=== PATIENT | female | born 1990 | race Caucasian/White ===

== ENCOUNTER 2017-01-02 18:38 | Observation (INO) | payer OTHER ==
[~2017-01-02] VITALS: Ht 160 cm; Wt 56.6 kg
[~2017-01-02 18:38] MED LIST: ASACOL HD800 MG PO; DESYREL 150 MG150 MG PO; DILAUDID2 MG PO; PERCOCET 5/31 TABLET PO; PRILOSEC OTC20 MG PO; REMICADE10 MG/ML IV
[2017-01-02 19:22] LABS: HEMATOCRIT 40.5 % (36.0-46.0); MCH 29.4 PG (29.0-34.0); MCHC 33.8 G/DL (30.0-36.0); MCV 86.9 FL (83-99); MEAN PLAT.VOLUME 10.6 uM^3 (9.5-12.4); PLATELET COUNT 254 K/uL (156-360); RBC DIS.WIDTH-CV 13.3 % (11.8-14.6); RBC DIS.WIDTH-SD 41.4 % (39-53); RED BLOOD COUNT 4.66 M/uL (3.80-5.20)
[2017-01-02 19:43] LABS: CHLORIDE 106 mEq/L (99-109); POTASSIUM 3.8 mEq/L (3.7-5.4); SODIUM 141 mEq/L (136-147)
[2017-01-02 19:44] LABS: MAGNESIUM 2.2 mg/dL (1.3-2.7)
[2017-01-02 19:46] LABS: GLUCOSE 96 mg/dL (70-99)
[2017-01-02 19:47] LABS: ANION GAP 10 MEQ/L (2-14)
[2017-01-02 19:49] LABS: GFR ESTIMATE (CALCULATED) > 59 mL/min/
[2017-01-02 19:50] LABS: UREA NITROGEN (BUN) 17 mg/dL (9-23)
[2017-01-02 19:52] LABS: QUANTITATIVE HCG < 4.0 MIU/ML
[2017-01-02 20:07] LABS: AMPHETAMINE NEGATIVE (500 ng/mL); BARBITURATES NEGATIVE (200 ng/mL); BENZODIAZEPINES NEGATIVE (150 ng/mL); COCAINE NEGATIVE (150 ng/mL); INTERNAL CONTROLS VALID? YES; METHADONE NEGATIVE (200 ng/mL); METHAMPHETAMINE NEGATIVE (500 ng/mL); OPIATES (MORPHINE) NEGATIVE (100 ng/mL); OXYCODONE PRESUMPTIVE POSITIVE (100 ng/mL); PHENCYCLIDINE NEGATIVE (25 ng/mL); PROPOXYPHENE NEGATIVE (300 ng/mL); THC CANNABINOIDS PRESUMPTIVE POSITIVE (50 ng/mL); TRICYCLIC ANTIDEPRESSANTS PRESUMPTIVE POSITIVE (300 ng/mL)
[2017-01-02 20:08] LABS: ADD MEDTOX COMMENT Y
[2017-01-02] MEDS ORDERED: EFFEXOR XR150 MG PO (20:48)
[2017-01-02] MEDS ORDERED: AMITRIPTYLINE H25 MG PO (20:49)
[2017-01-02] MEDS ORDERED: VISTARIL25 MG PO (20:50)
[2017-01-03 00:50] VITALS: BP 121/89
[2017-01-03 04:16] VITALS: BP 109/66
[2017-01-03 06:57] LABS: HEMATOCRIT 38.5 % (36.0-46.0); MCH 28.6 PG (29.0-34.0); MCHC 32.5 G/DL (30.0-36.0); MCV 88.1 FL (83-99); MEAN PLAT.VOLUME 10.9 uM^3 (9.5-12.4); PLATELET COUNT 234 K/uL (156-360); RBC DIS.WIDTH-CV 13.5 % (11.8-14.6); RBC DIS.WIDTH-SD 43.6 % (39-53); RED BLOOD COUNT 4.37 M/uL (3.80-5.20); WHITE BLOOD COUNT 5.7 K/uL (4.1-10.2)
[2017-01-03 07:20] LABS: ALKALINE PHOSPHATASE 71 IU/L (3-129); ANION GAP 8 MEQ/L (2-14); CHLORIDE 108 MEQ/L (99-109); GFR ESTIMATE (CALCULATED) > 59 mL/min/; GLUCOSE 82 mg/dL (70-99); POTASSIUM 3.8 MEQ/L (3.7-5.4); SAMPLE HEMOLYSIS CHECK 0; SAMPLE ICTERIC CHECK 0; SAMPLE LIPEMIA CHECK 0; SODIUM 140 MEQ/L (136-147); TOTAL BILIRUBIN 0.5 MG/DL (0.0-1.0); UREA NITROGEN (BUN) 23 mg/dL (9-23)
[2017-01-03 09:40] VITALS: BP 111/73
[2017-01-03 12:16] VITALS: BP 111/71
[2017-01-03] MEDS ORDERED: LEVETIRACETAM500 MG PO (14:16)
== END 2017-01-03 15:59 | disposition home or self-care (01) ==
LOC: EME 18:38 → EDOF 22:16 → 5WEST 23:59
PROVIDERS: Emergency Medicine; Hospitalist
DX: R56.9 Unspecified convulsions (principal); F41.9 Anxiety disorder, unspecified; F43.29 Adjustment disorder with other symptoms; K50.90 Crohn's disease, unspecified, without complications; L40.50 Arthropathic psoriasis, unspecified; S09.8XXA Other specified injuries of head, initial encounter; S99.811A Other specified injuries of right ankle, initial encounter; Z79.891 Long term (current) use of opiate analgesic; F17.200 Nicotine dependence, unspecified, uncomplicated; Z88.1 Allergy status to other antibiotic agents; Y92.009 Unspecified place in unspecified non-institutional (private) residence as the place of occurrence of the external cause
CPT/HCPCS: 70450; 70486; 70551; 73610; 80048; 80053; 83735; 84702; 84999; 85027; 99281; 99285; G0378; J1200; J1885; J7030

== ENCOUNTER 2017-01-27 03:06 | Emergency (ER) | payer OTHER ==
[~2017-01-27] VITALS: Ht 160 cm; Wt 66.2 kg
[~2017-01-27 03:06] MED LIST changes: +AMITRIPTYLINE H25 MG PO; +EFFEXOR XR150 MG PO; +LEVETIRACETAM500 MG PO; +VISTARIL25 MG PO
[2017-01-27] MEDS ORDERED: CYCLOBENZAPRINE10 MG PO (03:15)
[2017-01-27 03:52] LABS: HEMATOCRIT 39.9 % (36.0-46.0); MCH 28.9 PG (29.0-34.0); MCHC 32.8 G/DL (30.0-36.0); MCV 88.1 FL (83-99); MEAN PLAT.VOLUME 10.6 uM^3 (9.5-12.4); PLATELET COUNT 216 K/uL (156-360); RBC DIS.WIDTH-CV 12.8 % (11.8-14.6); RBC DIS.WIDTH-SD 40.4 % (39-53); RED BLOOD COUNT 4.53 M/uL (3.80-5.20)
[2017-01-27 03:53] LABS: WHITE BLOOD COUNT 8.7 K/uL (4.1-10.2)
[2017-01-27 03:57] LABS: CHLORIDE 108 mEq/L (99-109); POTASSIUM 3.8 mEq/L (3.7-5.4)
[2017-01-27 03:58] LABS: SODIUM 143 mEq/L (136-147)
[2017-01-27 03:59] LABS: GLUCOSE 108 mg/dL (70-99)
[2017-01-27 04:01] LABS: ANION GAP 10 MEQ/L (2-14)
[2017-01-27 04:03] LABS: GFR ESTIMATE (CALCULATED) > 59 mL/min/
[2017-01-27 04:04] LABS: UREA NITROGEN (BUN) 23 mg/dL (9-23)
[2017-01-27 04:11] LABS: QUANTITATIVE HCG < 4.0 MIU/ML
[2017-01-27] MEDS ORDERED: KEPPRA250 MG PO (04:52)
[2017-01-27 05:18] VITALS: BP 103/84
== END 2017-01-27 05:19 | disposition home or self-care (01) ==
LOC: EME 03:06
PROVIDERS: Emergency Medicine
DX: G40.909 Epilepsy, unspecified, not intractable, without status epilepticus (principal); K50.90 Crohn's disease, unspecified, without complications; Z87.442 Personal history of urinary calculi; F17.200 Nicotine dependence, unspecified, uncomplicated
CPT/HCPCS: 80048; 84702; 85027; 93005; 99281; 99284; J1953; J7050

== ENCOUNTER → 2017-02-12 | Outpatient (CLI) | payer OTHER ==
[~2017-02-12] MED LIST changes: +CYCLOBENZAPRINE10 MG PO; +KEPPRA250 MG PO
== END | disposition home or self-care (01) ==
LOC: EEG 09:00
DX: R56.9 Unspecified convulsions (principal)
CPT/HCPCS: 95813

== ENCOUNTER 2017-02-19 09:40 | Emergency (ER) | payer OTHER ==
[~2017-02-19] VITALS: Ht 160 cm; Wt 69.4 kg
[2017-02-19 10:30] LABS: HEMATOCRIT 39.8 % (36.0-46.0); MCH 28.7 PG (29.0-34.0); MCHC 32.2 G/DL (30.0-36.0); MCV 89.2 FL (83-99); MEAN PLAT.VOLUME 10.1 uM^3 (9.5-12.4); PLATELET COUNT 250 K/uL (156-360); RBC DIS.WIDTH-CV 13.1 % (11.8-14.6); RBC DIS.WIDTH-SD 43.1 % (39-53); RED BLOOD COUNT 4.46 M/uL (3.80-5.20); WHITE BLOOD COUNT 7.6 K/uL (4.1-10.2)
[2017-02-19 10:50] LABS: CHLORIDE 104 mEq/L (99-109); POTASSIUM 4.5 mEq/L (3.7-5.4); SODIUM 140 mEq/L (136-147)
[2017-02-19 10:51] LABS: GLUCOSE 60 mg/dL (70-99)
[2017-02-19 10:53] LABS: ANION GAP 12 MEQ/L (2-14)
[2017-02-19 10:55] LABS: GFR ESTIMATE (CALCULATED) > 59 mL/min/
[2017-02-19 10:56] LABS: UREA NITROGEN (BUN) 21 mg/dL (9-23)
[2017-02-19 11:54] LABS: ADD MIUA? YES; BILIRUBIN NEGATIVE; BLOOD SMALL; COLOR YELLOW ((YELLOW)); GLUCOSE (STRIP) NEGATIVE; KETONES NEGATIVE; LEUKOCYTES TRACE; NITRITE NEGATIVE; PROTEIN (STRIP) NEGATIVE; SPECIFIC GRAVITY 1.015 (1.000-1.030); UROBILINOGEN 0.2 MG/DL (0.2-1.0)
[2017-02-19 12:05] LABS: AMPHETAMINE NEGATIVE (500 ng/mL); BENZODIAZEPINES NEGATIVE (150 ng/mL); COCAINE NEGATIVE (150 ng/mL); METHAMPHETAMINE NEGATIVE (500 ng/mL); OPIATES (MORPHINE) NEGATIVE (100 ng/mL); PHENCYCLIDINE NEGATIVE (25 ng/mL); THC CANNABINOIDS PRESUMPTIVE POSITIVE (50 ng/mL)
[2017-02-19 12:06] LABS: ADD MEDTOX COMMENT Y; BARBITURATES NEGATIVE (200 ng/mL); INTERNAL CONTROLS VALID? YES; METHADONE PRESUMPTIVE POSITIVE (200 ng/mL); OXYCODONE NEGATIVE (100 ng/mL); PROPOXYPHENE NEGATIVE (300 ng/mL); TRICYCLIC ANTIDEPRESSANTS PRESUMPTIVE POSITIVE (300 ng/mL)
[2017-02-19 12:16] LABS: CREATINE KINASE 74 IU/L (1-294)
[2017-02-19 12:21] LABS: BACTERIA RARE /HPF; CALCIUM OXALATE CRYSTALS 1+ /HPF; EPITHELIAL CELLS 1+ /HPF; MUCUS NONE SEEN /LPF; RED BLOOD CELLS 0-5 /HPF (0-5); UCUL ADDED? NO; WHITE BLOOD CELLS 0-5 /HPF (0-5)
[2017-02-19 12:22] LABS: QUANTITATIVE HCG < 4.0 MIU/ML
[2017-02-19 13:18] VITALS: BP 114/73
== END 2017-02-19 13:20 | disposition home or self-care (01) ==
LOC: EME 09:40
PROVIDERS: Nurse Practitioner Family
PROC: 08QNXZZ Repair Right Upper Eyelid, External Approach (ICD-10-PCS; principal; 2017-02-19)
DX: G40.909 Epilepsy, unspecified, not intractable, without status epilepticus (principal); S01.111A Laceration without foreign body of right eyelid and periocular area, initial encounter; W22.03XA Walked into furniture, initial encounter; K50.90 Crohn's disease, unspecified, without complications; L40.9 Psoriasis, unspecified; Z97.5 Presence of (intrauterine) contraceptive device; F17.200 Nicotine dependence, unspecified, uncomplicated; F12.10 Cannabis abuse, uncomplicated; F11.10 Opioid abuse, uncomplicated
CPT/HCPCS: 80048; 80156; 80177 90; 80184; 80185; 81003; 82550; 84702; 84999; 85027; 99281; 99284

== ENCOUNTER 2017-03-21 11:07 | Emergency (ER) | payer OTHER ==
[~2017-03-21] VITALS: Ht 160 cm; Wt 59.5 kg
[2017-03-21] MEDS ORDERED: PERCOCET 5/31 TABLET PO (13:14)
[2017-03-21 13:36] VITALS: BP 144/90
== END 2017-03-21 13:38 | disposition home or self-care (01) ==
LOC: EME 11:07 → EXP 11:07
PROC: 0QSRXZZ Reposition Left Toe Phalanx, External Approach (ICD-10-PCS; principal; 2017-03-21)
DX: S92.532A Displaced fracture of distal phalanx of left lesser toe(s), initial encounter for closed fracture (principal); W19.XXXA Unspecified fall, initial encounter; R56.9 Unspecified convulsions; K50.90 Crohn's disease, unspecified, without complications; L40.50 Arthropathic psoriasis, unspecified
CPT/HCPCS: 73590; 73630; 99281; 99283